=== PATIENT | male | born 1945 | race Asian ===

== ENCOUNTER 2016-03-24 12:32 | Outpatient (CLI) | payer OTHER, BC | END 2016-03-24 20:06 | disposition home or self-care (01) | LOC: RAD 12:32 | DX: S52.502G Unspecified fracture of the lower end of left radius, subsequent encounter for closed fracture with delayed healing (principal); R76.11 Nonspecific reaction to tuberculin skin test without active tuberculosis ==

== ENCOUNTER 2016-06-14 16:00 | Emergency (ER) | payer OTHER, BC ==
[~2016-06-14] VITALS: Ht 177.8 cm; Wt 123.4 kg
[2016-06-14 16:36] VITALS: BP 204/87; TEMP 97.9
== END 2016-06-14 17:35 | disposition home or self-care (01) ==
LOC: ED 16:00
DX: T63.441A Toxic effect of venom of bees, accidental (unintentional), initial encounter (principal); Y93.89 Activity, other specified; Y92.098 Other place in other non-institutional residence as the place of occurrence of the external cause
CPT/HCPCS: 99281

== ENCOUNTER 2018-03-18 13:15 | Outpatient (CLI) | payer OTHER, BC | END 2018-03-18 19:50 | disposition home or self-care (01) | LOC: RAD 13:15 | DX: Z00.00 Encounter for general adult medical examination without abnormal findings (principal) ==

== ENCOUNTER 2019-11-08 08:59 | Outpatient (CLI) | payer OTHER | END 2019-11-08 19:05 | disposition home or self-care (01) | LOC: CT 08:59 | DX: D48.1 Neoplasm of uncertain behavior of connective and other soft tissue (principal); K82.8 Other specified diseases of gallbladder | CPT/HCPCS: 36415; 82565; 84520; Q9963 ==

== ENCOUNTER 2019-12-07 09:01 | Outpatient (CLI) | payer OTHER | END 2019-12-07 22:21 | disposition home or self-care (01) | LOC: RAD 09:01 | DX: R60.0 Localized edema (principal) ==

== ENCOUNTER 2020-03-12 09:04 | Outpatient (CLI) | payer OTHER, BC | END 2020-03-12 19:20 | disposition home or self-care (01) | LOC: RESP 09:04 | PROVIDERS: ATTEND Specialist | DX: Z01.810 Encounter for preprocedural cardiovascular examination (principal); Z91.89 Other specified personal risk factors, not elsewhere classified; I10 Essential (primary) hypertension ==

== ENCOUNTER 2020-03-13 08:44 | Outpatient (CLI) | payer OTHER, BC ==
[~2020-03-13] VITALS: Ht 177.8 cm; Wt 128.4 kg
== END 2020-03-13 23:14 | disposition home or self-care (01) ==
LOC: NM 08:44
PROVIDERS: ATTEND Specialist
DX: Z01.810 Encounter for preprocedural cardiovascular examination (principal); Z91.89 Other specified personal risk factors, not elsewhere classified; I10 Essential (primary) hypertension
CPT/HCPCS: A9500; J2785

== ENCOUNTER 2020-04-08 17:20 | Emergency (ER) | payer OTHER, BC ==
[~2020-04-08] VITALS: Ht 177.8 cm; Wt 128.4 kg
[2020-04-08 17:27] VITALS: TEMP 97
[2020-04-08 18:07] LABS: PLATELET COUNT 142 K/uL (142-355)
[2020-04-08 18:15] LABS: POTASSIUM 4.2 mmol/L (3.6-5.2)
[2020-04-08 18:32] LABS: PARTIAL THROMBOPLASTIN TIME 22.2 SECONDS (24.5-33.6)
[2020-04-08 21:15] VITALS: BP 126/88
== END 2020-04-08 21:15 | disposition still patient (30) ==
LOC: ED 17:20
PROVIDERS: Hospitalist
PROC: 0T9B70Z Drainage of Bladder with Drainage Device, Via Natural or Artificial Opening (ICD-10-PCS; principal; 2020-04-08)
DX: I95.89 Other hypotension (principal); I50.9 Heart failure, unspecified; Z20.828 Contact with and (suspected) exposure to other viral communicable diseases
CPT/HCPCS: 36415; 51702; 80053; 81000; 82550; 83605; 83880; 84484; 85027; 85610; 85730; 87040; 87088; 87635; 93005; 96360; 96365; 96375; 99285; J0696; J1940; U0003

== ENCOUNTER 2020-11-09 08:04 | Outpatient (CLI) | payer OTHER, BC ==
[2020-11-09 08:28] LABS: PLATELET COUNT 261 K/uL (142-355)
[2020-11-09 08:50] LABS: POTASSIUM 3.7 mmol/L (3.6-5.2)
== END 2020-11-09 19:16 | disposition home or self-care (01) ==
LOC: LABW 08:04
PROVIDERS: ATTEND Nurse Practitioner Family
DX: C49.A4 Gastrointestinal stromal tumor of large intestine (principal); C61 Malignant neoplasm of prostate; D64.89 Other specified anemias; E53.8 Deficiency of other specified B group vitamins
CPT/HCPCS: 36415; 80053; 85027

== ENCOUNTER 2020-12-28 10:50 | Outpatient (CLI) | payer OTHER, BC ==
[2020-12-28 11:46] LABS: PLATELET COUNT 286 K/uL (142-355)
== END 2020-12-28 19:36 | disposition home or self-care (01) ==
LOC: LABW 10:50
PROVIDERS: ATTEND Nurse Practitioner Family
DX: C49.A4 Gastrointestinal stromal tumor of large intestine (principal); C61 Malignant neoplasm of prostate; D64.89 Other specified anemias; E53.8 Deficiency of other specified B group vitamins
CPT/HCPCS: 36415; 80053; 82607; 82728; 82746; 83010; 83540; 83550; 85027; 85044; 86880

== ENCOUNTER 2021-04-10 11:29 | Outpatient (CLI) | payer OTHER, BC ==
[2021-04-10 13:35] LABS: PLATELET COUNT 243 K/uL (142-355)
[2021-04-10 14:07] LABS: POTASSIUM 4.3 mmol/L (3.6-5.2)
== END 2021-04-10 19:05 | disposition home or self-care (01) ==
LOC: LABW 11:29
PROVIDERS: Nurse Practitioner Family; ATTEND Internal Medicine Medical Oncology
DX: C49.A4 Gastrointestinal stromal tumor of large intestine (principal); E53.8 Deficiency of other specified B group vitamins; E61.1 Iron deficiency; Z85.46 Personal history of malignant neoplasm of prostate; D64.89 Other specified anemias; Z08 Encounter for follow-up examination after completed treatment for malignant neoplasm
CPT/HCPCS: 36415; 80053; 82607; 82728; 82746; 83540; 83550; 84100; 85027; 86340

== ENCOUNTER 2021-12-17 14:03 | Emergency (ER) | payer OTHER, BC ==
[~2021-12-17] VITALS: Ht 177.8 cm; Wt 128.4 kg
[2021-12-17 14:20] VITALS: TEMP 97.3
[2021-12-17 15:00] LABS: POTASSIUM 3.8 mmol/L (3.6-5.2)
[2021-12-17 15:04] LABS: PLATELET COUNT 206 K/uL (142-355)
[2021-12-17 15:23] LABS: PARTIAL THROMBOPLASTIN TIME 23.4 SECONDS (24.5-33.6)
[2021-12-17 17:40] VITALS: BP 167/82
== END 2021-12-17 17:40 | disposition home or self-care (01) ==
LOC: ED 14:03
PROVIDERS: Family Medicine
DX: I16.0 Hypertensive urgency (principal); R54 Age-related physical debility; E11.9 Type 2 diabetes mellitus without complications; Z79.899 Other long term (current) drug therapy
CPT/HCPCS: 36415; 80053; 80307; 81002; 82550; 84484; 85027; 85610; 85730; 93005; 99283

== ENCOUNTER 2022-09-11 13:37 | Inpatient (IN) | payer OTHER, BC ==
[~2022-09-11] VITALS: Ht 177.8 cm; Wt 126.2 kg
[2022-09-11 13:37] VITALS: BP 171/84; TEMP 99
[2022-09-11 14:00] LABS: PLATELET COUNT 183 K/uL (142-355)
[2022-09-11 14:11] LABS: POTASSIUM 3.7 mmol/L (3.6-5.2)
[2022-09-11 16:00] VITALS: BP 185/108; TEMP 99.3
[2022-09-11] MEDS ORDERED: COZAAR25 MG PO (19:05)
[2022-09-11] MEDS ORDERED: CASODEX50 MG PO (19:05)
[2022-09-11] MEDS ORDERED: COZAAR100 MG PO (19:05)
[2022-09-11] MEDS ORDERED: FURO40TA93 PO (19:06)
[2022-09-11] MEDS ORDERED: LABETALOL200 MG PO (19:06)
[2022-09-11] MEDS ORDERED: TRESIBA FL100 UNIT/M SC (19:06)
[2022-09-11] MEDS ORDERED: TAMS0.4C PO (19:07)
[2022-09-11] MEDS ORDERED: AMLO2.5T PO (19:07)
[2022-09-11] MEDS ORDERED: MAG OXIDE PO (19:07)
[2022-09-11] MEDS ORDERED: LIPITOR10 MG PO (19:07)
[2022-09-11] MEDS ORDERED: METF500T PO (19:08)
[2022-09-11] MEDS ORDERED: ASA LOW DOSE81 MG PO (19:08)
[2022-09-11] MEDS ORDERED: VITAMIN B12 PO (19:08)
[2022-09-11] MEDS ORDERED: VITAMIN D PO (19:09)
[2022-09-11 20:00] VITALS: BP 173/86; TEMP 99.6
[2022-09-11 22:13] LABS: POTASSIUM 3.9 mmol/L (3.6-5.2)
[2022-09-12] VITALS (9 sets, daily range): BP systolic 123–185; BP diastolic 57–91; TEMP 98–99.3; Ht 177.8 cm; Wt 126.2 kg
[2022-09-12 05:41] LABS: POTASSIUM 3.7 mmol/L (3.6-5.2)
[2022-09-13 03:40] VITALS: BP 139/71; TEMP 98.5
[2022-09-13 05:18] LABS: PLATELET COUNT 170 K/uL (142-355)
[2022-09-13 05:32] LABS: POTASSIUM 3.5 mmol/L (3.6-5.2)
[2022-09-13 08:00] VITALS: BP 155/78; TEMP 98.2
[2022-09-13 12:00] VITALS: BP 149/62; TEMP 98.1
[2022-09-13 16:00] VITALS: BP 133/65; TEMP 98
[2022-09-13 19:31] VITALS: BP 91/66; TEMP 98.6
[2022-09-13 23:42] VITALS: BP 175/85; TEMP 98.5
[2022-09-14 03:34] VITALS: BP 136/63; TEMP 98.5
[2022-09-14 05:25] LABS: PLATELET COUNT 177 K/uL (142-355)
[2022-09-14 05:30] LABS: POTASSIUM 4.3 mmol/L (3.6-5.2)
[2022-09-14 08:00] VITALS: BP 149/61; TEMP 98.7
[2022-09-14 12:00] VITALS: BP 118/77; TEMP 98.7
[2022-09-14 15:58] VITALS: BP 133/68; TEMP 98.6
[2022-09-14 19:46] VITALS: BP 152/63; TEMP 99.1
[2022-09-14 23:38] VITALS: BP 150/70; TEMP 99.1
[2022-09-15 03:32] VITALS: BP 145/69; TEMP 99.1
[2022-09-15 04:47] LABS: PLATELET COUNT 177 K/uL (142-355)
[2022-09-15 05:08] LABS: POTASSIUM 4.2 mmol/L (3.6-5.2)
[2022-09-15 08:00] VITALS: BP 151/70; TEMP 98.4
[2022-09-15 09:57] LABS: PLATELET COUNT 174 K/uL (142-355)
[2022-09-15 10:31] LABS: POTASSIUM 4.1 mmol/L (3.6-5.2)
[2022-09-15 12:00] VITALS: BP 143/69; TEMP 98.1
[2022-09-15 16:00] VITALS: BP 164/78; TEMP 98.5
[2022-09-15 20:00] VITALS: BP 163/65; TEMP 98.4
[2022-09-16] VITALS: BP 148/64; TEMP 98.4
[2022-09-16 04:00] VITALS: BP 147/82; TEMP 98.5
[2022-09-16 08:00] VITALS: BP 155/74; TEMP 98.6
[2022-09-16 12:00] VITALS: BP 163/76; TEMP 98.7
[2022-09-16] MEDS ORDERED: LIPITOR10 MG PO (14:24)
== END 2022-09-16 15:30 | DRG 192 ==
LOC: ED 13:37 → MED/SURG 14:45
PROVIDERS: ADMIT Family Medicine; ATTEND Family Medicine
DX: J44.1 Chronic obstructive pulmonary disease with (acute) exacerbation (principal); I11.0 Hypertensive heart disease with heart failure; I50.9 Heart failure, unspecified; R09.02 Hypoxemia; R53.81 Other malaise; E87.8 Other disorders of electrolyte and fluid balance, not elsewhere classified; F03.90 Unspecified dementia, unspecified severity, without behavioral disturbance, psychotic disturbance, mood disturbance, and anxiety; Q82.0 Hereditary lymphedema; R29.6 Repeated falls; Z91.81 History of falling; E11.9 Type 2 diabetes mellitus without complications; N18.9 Chronic kidney disease, unspecified; G89.29 Other chronic pain; G62.89 Other specified polyneuropathies; R26.81 Unsteadiness on feet; R22.43 Localized swelling, mass and lump, lower limb, bilateral; E87.6 Hypokalemia; I12.9 Hypertensive chronic kidney disease with stage 1 through stage 4 chronic kidney disease, or unspecified chronic kidney disease
CPT/HCPCS: 36415; 36600; 80048; 80053; 81002; 82550; 82805; 82948; 83735; 83880; 84100; 84484; 85027; 93005; 94664; 94667; 94668; 94760; 96372; 96374; 99284; J1940; J3475